=== PATIENT | female | born 1980 ===

== ENCOUNTER 2016-08-26 21:05 | Emergency (ER) | payer SELFPAY ==
[~2016-08-26 21:05] MED LIST: COLACE-DPS100 MG PO; MOTRIN-DPS800 MG PO; PERCOCET 5 DPS1 TAB PO; PRENATAL VIT1 TAB PO
--- NOTE | 2016-08-27 03:22 | ER ---
ADMIT: 08/26/2016 RM/LOC: ER [facility] MR#: [id number] [facility] [id number] [place] [address] Emergency Room Report SEX: F AGE: 35 : 1980 DATE: 08/26/2016 The patient is a 35-year-old female, in police custody, admits to doing methamphetamine yesterday. Exam remarkable for nontoxic, afebrile female with stable vital signs, but increased psychomotor tone. Denies any other complaint, released in police custody. Antonino Reyes MD/ michellel JOB #: [id number] CC: Antonino Reyes MD, Attending Physician Yan Pryor MD, Family Physician Yan Pryor MD
== END 2016-08-26 21:30 ==
LOC: ER 21:05
DX: Z02.89 Encounter for other administrative examinations (principal); Z98.890 Other specified postprocedural states